=== PATIENT | male | born 1990 | race Caucasian/White ===

== ENCOUNTER 2021-01-06 11:25 | Emergency (ER) | payer BC ==
[~2021-01-06] VITALS: Ht 185 cm; Wt 85.0 kg
[~2021-01-06 11:25] MED LIST: NS IV 1000 ML 1,000 ML ONE
--- NOTE | 2021-01-06 11:50 | ED EENT ---
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 PT CO OF 2/10. R EYE REDDEND FEEL A LITTLE IRRITATED. Source: patient Exam Limitations: no limitations History of Present Illness Date Seen by Provider: Jan 06, 2021 Time Seen by Provider: 11:39 Initial Comments Patient presents ER by private conveyance from work with a coworker and chief complaint that he was dusting corrosion off of the battery on a forklift and the battery exploded some of the corrosion struck him in his right eye causing some pain so he immediately went to the sink and rinsed his eyes out with water cold tap water for 15 minutes before coming to the ER. He still has vision and rates his pain as a 1 out of 10. No prior injury no contact lenses and no corrective lenses. No nausea. He did not have anything solid strike his head. He is not having any pain elsewhere. He was wearing a jacket at the time and says nowhere else on his skin is burning. Allergies and Home Medications Allergies Coded Allergies: No Known Drug Allergies (Unverified , 01/06/21) Patient Home Medication List Home Medication List Reviewed: Yes Review of Systems Review of Systems Constitutional: No chills, No diaphoresis Eyes: Denies Blindness; Blurred Vision (Right eye), Pain, Photophobia Ears: Denies Dizziness, Denies Pain Nose: denies clots, denies congestion Mouth: denies clots, denies pain, denies swelling Respiratory: No cough, No phlegm Past [place]-Mhk[place] Hx Patient Social History Alcohol Use: Denies Use Smoking Status: Never a Smoker Recent Infectious Disease Expo: No Visual Acuity : Eye Location: Right Physical Exam Vital Signs Vital Signs - First Documented 01/06/21 11:30 Temp 36.2 Pulse 94 Resp 18 B/P (MAP) 134/87 (103) Pulse Ox 100 Height, Weight, BMI Height: '" Weight: lbs. oz. kg; 24.00 BMI Method: General Appearance: WD/WN, mild distress Eyes: right eye other (No corneal abrasion on fluorescein staining. Mild mattering.); left eye normal inspection; bilateral eye PERRL, bilateral eye EOMI Ears: bilateral ear auricle normal, bilateral ear canal normal, bilateral ear TM normal Mouth/Throat: normal mouth inspection, pharynx normal Neck: full range of motion, normal inspection Cardiovascular: normal peripheral pulses, regular rate, rhythm Respiratory: no respiratory distress, no accessory muscle use Neurologic/Psychiatric: alert, oriented x 3 Skin: normal color, warm/dry Progress/Results/Core Measures Results/Orders My Orders Orders - GLORIA MOYA Tetracaine 0.5% Ophth Melissa Sdv (Tetracai (01/06/21 12:30) Fluorescein Strips ([id number]) (01/06/21 12:30) Medications Given in ED Current Medications Medications Dose Ordered Sig/Chrissy Route Start Time Stop Time Status Last Admin Dose Admin Fluorescein Sodium 1 mg ONCE ONCE OU 01/06/21 12:30 01/06/21 12:31 DC 01/06/21 12:34 1 MG Tetracaine HCl 4 ml ONCE ONCE OU 01/06/21 12:30 01/06/21 12:31 DC 01/06/21 12:34 4 ML Vital Signs/I&O 01/06/21 11:30 Temp 36.2 Pulse 94 Resp 18 B/P (MAP) 134/87 (103) Pulse Ox 100 Blood Pressure Mean: 103 Progress Progress Note #1: Time: 11:49 Progress Note After consultation with poison control they recommend that we flushed the eye out with a liter of saline and then 30 minutes later we will check the pH. If it is between 7 and 8 then we are done flushing. We will then check for corneal abrasion using fluorescein stain. Progress Note #2: Time: 12:44 Progress Note After 30 minutes we tested the pH and it was 8. We then put some tetracaine in the eye he is going to the bathroom and then we will use fluorescein to use a [place] lamp and examined for corneal abrasions Progress Note #3: Time: 13:48 Progress Note Discussed the case with Dr. Dukes, optometry and she says she would like to see the patient now so she can do a stains and under microscopy. She would then initiate appropriate antibiotics and/or steroids topically. Departure Impression Primary Impression: Keratitis due to trauma Disposition: 01 HOME, SELF-CARE Condition: Stable Departure-Patient Inst. Decision time for Depature: 13:49 Referrals: KANNARR,JASIEL R OD NO,LOCAL PHYSICIAN (PCP) Primary Care Physician Patient Instructions: Corneal Abrasion (DC) Add. Discharge Instructions: From the ER go directly to Dr. Shelton's office and they will get you right in to do a more thorough exam and start you on appropriate medications. Hydrocodone 1 tablet every 6 hours as necessary for severe breakthrough pain. All discharge instructions reviewed with patient and/or family. Voiced understanding. Scripts Hydrocodone/Acetaminophen (Hydrocodone-Acetamin 5-325 mg) 1 Each Tablet 1 TAB PO Q6H PRN for PAIN-MODERATE (5-7), #10 TAB 0 Refills Prov: GLORIA MOYA 01/06/21 Work/School Note: Work Release Form Date Seen in the Emergency Department: Jan 06, 2021 Return to Work: Jan 12, 2021 Restrictions: No Restrictions Copy Copies To 1: JASIEL SHELTON OD, TITUS J Jan 06, 2021 11:50
[2021-01-06] MEDS ORDERED: TETRACAINE 0.5% OPHTH SOLN 4 ML BTL (SINGLE DOSE ONLY) OU ONE (12:30)
[2021-01-06] MEDS ORDERED: FLUORESCEIN (FLUOR-I-STRIPS) 1 MG STRP OU ONE (12:30)
[2021-01-06] MEDS ORDERED: ACHD5005 PO (13:53)
[2021-01-06 13:56] VITALS: BP 122/80
== END 2021-01-06 13:58 | disposition home or self-care (01) ==
LOC: ER 11:28
DX: H16.8 Other keratitis (principal)
CPT/HCPCS: 99283